=== PATIENT | female | born 1960 | race American Indian/Alaskan Native ===

== ENCOUNTER 2016-07-07 23:18 | Emergency (ER) | payer OTHER ==
[2016-07-08 00:22] LABS: Basophils % (Auto) 0.4 % (0.0-1.8); Eosinophils % (Auto) 1.6 % (0.0-4.3); Hematocrit 39.9 % (30.3-42.9); Hemoglobin 13.7 gm/dl (10.1-14.3); Mean Corpuscular HGB Conc 34 % (30-34); Mean Corpuscular Hemoglobin 30 pg (28-32); Mean Corpuscular Volume 88 fl (79-97); Platelet Count 194 K/mm3 (140-440); Red Blood Count 4.54 M/mm3 (3.65-5.03); Red Cell Distribution Width 13.1 % (13.2-15.2)
[2016-07-08 00:31] VITALS: BP 136/93
[2016-07-08 00:49] LABS: Anion Gap 14 mmol/L; Blood Urea Nitrogen 16 mg/dL (7-17); Calcium 9.3 mg/dL (8.4-10.2); Carbon Dioxide 29 mmol/L (22-30); Chloride 98.2 mmol/L (98-107); Glucose 155 mg/dL (65-100); Potassium 3.3 mmol/L (3.6-5.0); Sodium 138 mmol/L (137-145)
--- NOTE | 2016-07-08 14:31 | ED Elopement Review ---
ED Pt Elopement review - Results review Lab results: Laboratory Tests 07/08/16 07/08/16 00:11 00:11 WBC 9.0 RBC 4.54 Hgb 13.7 Hct 39.9 MCV 88 MCH 30 MCHC 34 RDW 13.1 L Plt Count 194 Lymph % (Auto) 39.7 H Roane % (Auto) 7.5 H Eos % (Auto) 1.6 Baso % (Auto) 0.4 Lymph # 3.6 Roane # 0.7 Eos # 0.1 Baso # 0.0 Seg Neutrophils % 50.8 Seg Neutrophils # 4.6 Sodium 138 Potassium 3.3 L Chloride 98.2 Carbon Dioxide 29 Anion Gap 14 BUN 16 Creatinine 1.0 Estimated GFR > 60 BUN/Creatinine Ratio 16.00 Glucose 155 H Calcium 9.3 Troponin T < 0.010 - Call Back decision Pt Call Back Decision: Pt to F/U with PMD
== END 2016-07-08 04:54 | disposition left against medical advice (07) ==
LOC: ED 23:18
DX: R03.0 Elevated blood-pressure reading, without diagnosis of hypertension (principal); Z53.21 Procedure and treatment not carried out due to patient leaving prior to being seen by health care provider
CPT/HCPCS: 36415; 80048; 84484; 85025; 93005; 93010